=== PATIENT | male | born 1970 | race Caucasian/White ===

== ENCOUNTER 2020-08-02 09:37 | Inpatient (IN) ==
[2020-08-02 11:03] LABS: Basophils # 0.1 K/mcL (0.0-0.2); Basophils % 0.4 %; Eosinophils % 0.2 %; Hemoglobin 15.1 g/dL (12.9-16.9); Immature Granulocytes % 0.5 % (0-4); Lymphocytes # 0.9 K/mcL (0.6-4.6); Lymphocytes % 6.8 %; Mean Corpuscular HGB Conc 32.1 g/dL (31.6-35.5); Mean Corpuscular Hemoglobin 31.6 pg (28.0-33.3); Mean Corpuscular Volume 98.3 fL (83.0-100.0); Mean Platelet Volume 11.9 fL (9.4-12.4); Monocytes # 1.2 K/mcL (0.0-1.3); Monocytes % 8.5 %; Neutrophils # 11.5 K/mcL (1.6-8.9); Platelet Count 165 K/mcL (140-400); Red Blood Count 4.78 M/mcL (4.19-5.50); Red Cell Distribution Width 13.1 % (11.5-14.5); Segmented Neutrophils % 83.6 %; White Blood Count 13.8 K/mcL (4.3-11.1)
[2020-08-02 11:16] LABS: BUN/Creatinine Ratio 14 (6-26); Blood Urea Nitrogen 16 mg/dL (6-20); Calcium 9.6 mg/dL (8.6-10.3); Carbon Dioxide 32 mEq/L (23-29); Chloride 99 mEq/L (98-107); Glucose 111 mg/dL (70-105); Osmolality,Calculated 284 (280-300); Potassium 4.4 mEq/L (3.5-5.1); Sodium 136 mEq/L (136-145); eGFR For African Americans > 60 (> 60); eGFR For Non-African Americans > 60 (> 60)
[2020-08-02] MEDS ORDERED: Piperacillin/Tazobactam 3.375 GM in Water for inj. (sterile) 20 ML IVP ONE (11:52)
[2020-08-02] MEDS ORDERED: *HR* OxyCODONE/APAP 10/325 TABLET PO ONE (12:02)
[2020-08-02] MEDS ORDERED: Dextrose Gel 15 GM/37.5 ML TUBE PO PRN ×2 (13:09)
[2020-08-02] MEDS ORDERED: D5% in Water 1,000 ML IVC PRN (13:09)
[2020-08-02] MEDS ORDERED: MOM Conc 10 ML UD.LIQ PO PRN (13:09)
[2020-08-02] MEDS ORDERED: Naloxone 0.4 MG/ML INJ IVP PRN (13:09)
[2020-08-02] MEDS ORDERED: *HR* Dextrose 50 % in Water (Vial) 50 ML VIAL IVP PRN (13:09)
[2020-08-02] MEDS ORDERED: Mag Hydrox/Al Hydrox/Simeth 30 ML UDC PO PRN (13:09)
[2020-08-02] MEDS ORDERED: Ondansetron 4 MG/2 ML VIAL IVP PRN (13:09)
[2020-08-02] MEDS ORDERED: Vancomycin (wt based) 1,000 MG VIAL IVPB SCH (14:00)
[2020-08-02] MEDS: Insulin LISPRO 300 UNITS/3 ML VIAL SUBQ SCH ×2 (16:33→22:29)
[2020-08-02] MEDS: Piperacillin/Tazobactam 3.375 GM in 0.9 % Sodium Chloride Mini Bag 100 ML IVPB SCH (22:21)
[2020-08-03] MEDS: Vancomycin 2,000 MG/520 ML IV.SOLN IVPB SCH ×2 (01:15→12:36)
[2020-08-03] MEDS: Piperacillin/Tazobactam 3.375 GM in 0.9 % Sodium Chloride Mini Bag 100 ML IVPB SCH ×3 (03:41→19:52)
[2020-08-03 07:00] LABS: Basophils % 0.2 %; Eosinophils # 0.1 K/mcL (0.0-0.6); Eosinophils % 0.4 %; Hematocrit 46.3 % (37.5-50.1); Hemoglobin 15.1 g/dL (12.9-16.9); Immature Granulocytes % 0.5 % (0-4); Lymphocytes # 1.1 K/mcL (0.6-4.6); Lymphocytes % 7.1 %; Mean Corpuscular HGB Conc 32.6 g/dL (31.6-35.5); Mean Corpuscular Hemoglobin 32.1 pg (28.0-33.3); Mean Corpuscular Volume 98.3 fL (83.0-100.0); Mean Platelet Volume 11.9 fL (9.4-12.4); Monocytes # 1.3 K/mcL (0.0-1.3); Monocytes % 8.6 %; Neutrophils # 12.5 K/mcL (1.6-8.9); Platelet Count 153 K/mcL (140-400); Red Blood Count 4.71 M/mcL (4.19-5.50); Red Cell Distribution Width 13.1 % (11.5-14.5); Segmented Neutrophils % 83.2 %
[2020-08-03 07:27] LABS: BUN/Creatinine Ratio 15 (6-26); Blood Urea Nitrogen 19 mg/dL (6-20); Carbon Dioxide 27 mEq/L (23-29); Chloride 98 mEq/L (98-107); Glucose 123 mg/dL (70-105); Magnesium 1.8 mg/dL (1.6-2.6); Osmolality,Calculated 282 (280-300); Sodium 134 mEq/L (136-145); eGFR For African Americans > 60 (> 60); eGFR For Non-African Americans 60 (> 60)
[2020-08-03] MEDS: Insulin LISPRO 300 UNITS/3 ML VIAL SUBQ SCH ×4 (07:37→19:53)
[2020-08-03] MEDS ORDERED: Gadolinium Contrast Agent (WT Based) IV PRN (07:53)
[2020-08-03] MEDS: *HR* Enoxaparin 40 MG/0.4 ML SYRINGE SQ SCH (08:22)
[2020-08-03] MEDS: Acetaminophen 325 MG TABLET PO PRN (08:23)
[2020-08-03] MEDS: 0.9 % Sodium Chloride 1,000 ML IVC SCH ×2 (08:58→17:37)
[2020-08-03 09:15] LABS: C-Reactive Protein 242 mg/L (Less than 10)
[2020-08-04] MEDS: Vancomycin 2,000 MG/520 ML IV.SOLN IVPB SCH ×2 (00:07→14:14)
[2020-08-04 02:57] LABS: Basophils % 0.3 %; Eosinophils # 0.1 K/mcL (0.0-0.6); Eosinophils % 0.5 %; Hematocrit 42.7 % (37.5-50.1); Hemoglobin 13.9 g/dL (12.9-16.9); Immature Granulocytes % 0.5 % (0-4); Lymphocytes # 1.5 K/mcL (0.6-4.6); Lymphocytes % 11.2 %; Mean Corpuscular HGB Conc 32.6 g/dL (31.6-35.5); Mean Corpuscular Hemoglobin 32.6 pg (28.0-33.3); Monocytes # 1.1 K/mcL (0.0-1.3); Monocytes % 8.5 %; Neutrophils # 10.5 K/mcL (1.6-8.9); Platelet Count 121 K/mcL (140-400); Red Blood Count 4.27 M/mcL (4.19-5.50); Red Cell Distribution Width 13.1 % (11.5-14.5); White Blood Count 13.3 K/mcL (4.3-11.1)
[2020-08-04] MEDS: Piperacillin/Tazobactam 3.375 GM in 0.9 % Sodium Chloride Mini Bag 100 ML IVPB SCH ×3 (03:08→20:52)
[2020-08-04] MEDS: 0.9 % Sodium Chloride 1,000 ML IVC SCH (03:08)
[2020-08-04] MEDS: Acetaminophen 325 MG TABLET PO PRN ×2 (03:11→23:26)
[2020-08-04 03:27] LABS: BUN/Creatinine Ratio 15 (6-26); Blood Urea Nitrogen 18 mg/dL (6-20); Calcium 8.4 mg/dL (8.6-10.3); Carbon Dioxide 22 mEq/L (23-29); Chloride 99 mEq/L (98-107); Glucose 111 mg/dL (70-105); Magnesium 1.9 mg/dL (1.6-2.6); Osmolality,Calculated 275 (280-300); Phosphorous 2.8 mg/dL (2.7-4.5); Potassium 4.3 mEq/L (3.5-5.1); Sodium 131 mEq/L (136-145); eGFR For African Americans > 60 (> 60); eGFR For Non-African Americans > 60 (> 60)
[2020-08-04] MEDS: *HR* Enoxaparin 40 MG/0.4 ML SYRINGE SQ SCH (06:02)
[2020-08-04] MEDS: Insulin LISPRO 300 UNITS/3 ML VIAL SUBQ SCH ×4 (07:51→20:47)
[2020-08-04] MEDS ORDERED: Isovue-370 500 ML BOTTLE IVP ONE (14:02)
[2020-08-04] MEDS ORDERED: Ketorolac 15 MG/ML VIAL IVP ONE (16:01)
[2020-08-05] MEDS: 0.9 % Sodium Chloride 1,000 ML IVC SCH ×4 (00:17→17:51)
[2020-08-05] MEDS: Vancomycin 2,000 MG/520 ML IV.SOLN IVPB SCH ×2 (00:18→12:06)
[2020-08-05] MEDS: Piperacillin/Tazobactam 3.375 GM in 0.9 % Sodium Chloride Mini Bag 100 ML IVPB SCH ×3 (04:27→20:28)
[2020-08-05] MEDS: *HR* Enoxaparin 40 MG/0.4 ML SYRINGE SQ SCH (05:57)
[2020-08-05] MEDS: Insulin LISPRO 300 UNITS/3 ML VIAL SUBQ SCH ×4 (07:48→19:18)
[2020-08-05 09:27] LABS: Basophils % 0.3 %; Eosinophils # 0.1 K/mcL (0.0-0.6); Eosinophils % 0.7 %; Hematocrit 40.2 % (37.5-50.1); Hemoglobin 13.1 g/dL (12.9-16.9); Immature Granulocytes % 1.1 % (0-4); Lymphocytes # 1.2 K/mcL (0.6-4.6); Lymphocytes % 11.5 %; Mean Corpuscular HGB Conc 32.6 g/dL (31.6-35.5); Mean Platelet Volume 11.6 fL (9.4-12.4); Monocytes % 9.8 %; Neutrophils # 7.7 K/mcL (1.6-8.9); Platelet Count 162 K/mcL (140-400); Segmented Neutrophils % 76.6 %; White Blood Count 10.1 K/mcL (4.3-11.1)
[2020-08-05 09:49] LABS: BUN/Creatinine Ratio 17 (6-26); Blood Urea Nitrogen 20 mg/dL (6-20); Calcium 8.8 mg/dL (8.6-10.3); Carbon Dioxide 29 mEq/L (23-29); Chloride 101 mEq/L (98-107); Glucose 101 mg/dL (70-105); Osmolality,Calculated 287 (280-300); Potassium 4.2 mEq/L (3.5-5.1); Sodium 137 mEq/L (136-145); eGFR For African Americans > 60 (> 60); eGFR For Non-African Americans > 60 (> 60)
[2020-08-05 11:03] LABS: Estimated Average Glucose 120 mg/dl; Hemoglobin A1C 5.8 %
[2020-08-05] MEDS ORDERED: *HR* Succinylcholine 200 MG/10 ML VIAL IVP ONE (12:38)
[2020-08-05] MEDS ORDERED: Ondansetron 4 MG/2 ML VIAL ONE (12:38)
[2020-08-05] MEDS ORDERED: Lidocaine -MPF 2% 2 ML VIAL ONE (12:38)
[2020-08-05] MEDS ORDERED: Lidocaine HCL 4 ML Topical Solution (Laryng-O-Jet Kit Sterile Pak) TP ONE (12:38)
[2020-08-05] MEDS ORDERED: *HR* FentaNYL (PF) 100 MCG/2 ML VIAL ONE (12:39)
[2020-08-05] MEDS ORDERED: *HR* Midazolam HCl 2 MG/2 ML VIAL ONE (12:39)
[2020-08-05] MEDS ORDERED: Acetaminophen IV 1,000 MG/100 ML BAG IVPB ONE (12:48)
[2020-08-05] MEDS ORDERED: Lidocaine/EPI 1:100k 2% 20 ML VIAL ONE (13:00)
[2020-08-05] MEDS ORDERED: Vancomycin 1,000 MG VIAL ONE (13:00)
[2020-08-05] MEDS ORDERED: Lidocaine/EPI 1:100k 1% 50 ML VIAL ONE (13:00)
[2020-08-05] MEDS ORDERED: *HR* HYDROMORPHONE 2 MG/ML VIAL ONE (14:02)
[2020-08-05] MEDS ORDERED: Gadolinium Contrast Agent (WT Based) IV PRN (16:08)
[2020-08-05] MEDS ORDERED: Mag Hydrox/Al Hydrox/Simeth 30 ML UDC PO PRN (16:08)
[2020-08-05] MEDS ORDERED: *HR* Dextrose 50 % in Water (Vial) 50 ML VIAL IVP PRN (16:08)
[2020-08-05] MEDS ORDERED: Acetaminophen 325 MG TABLET PO PRN (16:08)
[2020-08-05] MEDS ORDERED: Dextrose Gel 15 GM/37.5 ML TUBE PO PRN ×2 (16:08)
[2020-08-05] MEDS ORDERED: MOM Conc 10 ML UD.LIQ PO PRN (16:08)
[2020-08-05] MEDS ORDERED: Naloxone 0.4 MG/ML INJ IVP PRN (16:08)
[2020-08-05] MEDS ORDERED: D5% in Water 1,000 ML IVC PRN (16:08)
[2020-08-05] MEDS ORDERED: Ondansetron 4 MG/2 ML VIAL IVP PRN (16:08)
[2020-08-06] MEDS ORDERED: Vancomycin 2,000 MG/520 ML IV.SOLN IVPB SCH
[2020-08-06] MEDS: 0.9 % Sodium Chloride 1,000 ML IVC SCH ×3 (01:39→20:50)
[2020-08-06] MEDS: Piperacillin/Tazobactam 3.375 GM in 0.9 % Sodium Chloride Mini Bag 100 ML IVPB SCH ×3 (03:45→20:46)
[2020-08-06] MEDS: *HR* Enoxaparin 40 MG/0.4 ML SYRINGE SQ SCH (06:43)
[2020-08-06 07:47] LABS: Basophils % 0.3 %; Hematocrit 37.5 % (37.5-50.1); Hemoglobin 11.6 g/dL (12.9-16.9); Immature Granulocytes % 0.7 % (0-4); Lymphocytes # 1.4 K/mcL (0.6-4.6); Lymphocytes % 11.5 %; Mean Corpuscular HGB Conc 30.9 g/dL (31.6-35.5); Mean Corpuscular Hemoglobin 31.4 pg (28.0-33.3); Mean Corpuscular Volume 101.4 fL (83.0-100.0); Mean Platelet Volume 11.3 fL (9.4-12.4); Monocytes # 1.2 K/mcL (0.0-1.3); Monocytes % 10.1 %; Neutrophils # 9.5 K/mcL (1.6-8.9); Platelet Count 193 K/mcL (140-400); Red Cell Distribution Width 13.1 % (11.5-14.5); Segmented Neutrophils % 77.4 %; White Blood Count 12.3 K/mcL (4.3-11.1)
[2020-08-06 08:06] LABS: Calcium 8.3 mg/dL (8.6-10.3); Magnesium 2.1 mg/dL (1.6-2.6); Potassium 4.6 mEq/L (3.5-5.1)
[2020-08-06] MEDS: Insulin LISPRO 300 UNITS/3 ML VIAL SUBQ SCH ×4 (08:16→20:56)
[2020-08-06] MEDS ORDERED: Morphine Sulfate 2 MG/ML SYRINGE IVP PRN (11:03)
[2020-08-06] MEDS: *HR* OxyCODONE/APAP 10/325 TABLET PO PRN ×3 (14:44→23:02)
[2020-08-06] MEDS: Doxycycline 100 MG in 0.9 % Sodium Chloride Mini Bag 100 ML IVPB SCH (16:59)
[2020-08-07 02:54] LABS: Basophils # 0.1 K/mcL (0.0-0.2); Basophils % 0.5 %; Eosinophils # 0.1 K/mcL (0.0-0.6); Eosinophils % 0.8 %; Hematocrit 37.6 % (37.5-50.1); Hemoglobin 11.9 g/dL (12.9-16.9); Immature Granulocytes % 1.2 % (0-4); Lymphocytes % 20.9 %; Mean Corpuscular HGB Conc 31.6 g/dL (31.6-35.5); Mean Corpuscular Hemoglobin 32.2 pg (28.0-33.3); Mean Corpuscular Volume 101.6 fL (83.0-100.0); Mean Platelet Volume 11.3 fL (9.4-12.4); Monocytes # 1.1 K/mcL (0.0-1.3); Neutrophils # 6.2 K/mcL (1.6-8.9); Platelet Count 207 K/mcL (140-400); Red Cell Distribution Width 13.2 % (11.5-14.5); Segmented Neutrophils % 65.6 %; White Blood Count 9.5 K/mcL (4.3-11.1)
[2020-08-07 03:13] LABS: Calcium 8.3 mg/dL (8.6-10.3); Potassium 4.3 mEq/L (3.5-5.1)
[2020-08-07 03:22] LABS: Platelet Estimate Normal (Normal); Reactive Lymphocytes Present (Not Present)
[2020-08-07] MEDS: *HR* OxyCODONE/APAP 10/325 TABLET PO PRN ×4 (04:05→16:53)
[2020-08-07] MEDS: Piperacillin/Tazobactam 3.375 GM in 0.9 % Sodium Chloride Mini Bag 100 ML IVPB SCH ×2 (04:06→12:11)
[2020-08-07] MEDS: Doxycycline 100 MG in 0.9 % Sodium Chloride Mini Bag 100 ML IVPB SCH (05:51)
[2020-08-07] MEDS: *HR* Enoxaparin 40 MG/0.4 ML SYRINGE SQ SCH (05:52)
[2020-08-07] MEDS: Insulin LISPRO 300 UNITS/3 ML VIAL SUBQ SCH ×4 (09:44→20:40)
[2020-08-07] MEDS: Nicotine 21 MG PATCH.TD24 TD SCH (12:07)
[2020-08-07 12:21] LABS: Hepatitis B Surface Antigen Nonreactive (Nonreactive)
[2020-08-07 12:33] LABS: Bilirubin,Urine Negative (Negative); Blood,Urine Negative (Negative); Clarity,Urine Clear (Clear); Color,Urine Colorless (Yellow); Glucose,Urine (UA) Normal (Normal); Ketones,Urine Negative (Negative); Leukocyte Esterase,Urine Negative (Negative); Nitrite,Urine Negative (Negative); Protein,Urine Negative (Neg-Trace); Urobilinogen,Urine Normal (Normal)
[2020-08-07 12:50] LABS: Hepatitis A Antibody IgM Nonreactive (Nonreactive); Hepatitis B Core IgM Nonreactive (Nonreactive)
[2020-08-07 12:51] LABS: Hepatitis C Virus Antibody Nonreactive (Nonreactive)
[2020-08-07 13:16] LABS: Sodium, Urine 42.8 mEq/L
[2020-08-07] MEDS: 0.9 % Sodium Chloride 1,000 ML IVC SCH ×2 (16:23→16:52)
[2020-08-07] MEDS: Metoprolol XL (24 HR) Succ 50 MG TAB.ER.24H PO SCH (16:54)
[2020-08-07] MEDS: CeFAZolin 2 GM/120 ML BAG IVPB SCH (16:54)
[2020-08-08] MEDS: CeFAZolin 2 GM/120 ML BAG IVPB SCH ×4 (00:47→23:50)
[2020-08-08] MEDS: 0.9 % Sodium Chloride 1,000 ML IVC SCH ×3 (00:55→16:12)
[2020-08-08] MEDS: *HR* Enoxaparin 40 MG/0.4 ML SYRINGE SQ SCH (04:51)
[2020-08-08 06:43] LABS: Basophils # 0.1 K/mcL (0.0-0.2); Basophils % 0.7 %; Eosinophils # 0.1 K/mcL (0.0-0.6); Eosinophils % 0.6 %; Hematocrit 37.4 % (37.5-50.1); Hemoglobin 11.6 g/dL (12.9-16.9); Immature Granulocytes % 0.8 % (0-4); Lymphocytes # 1.5 K/mcL (0.6-4.6); Lymphocytes % 17.9 %; Mean Corpuscular Hemoglobin 31.4 pg (28.0-33.3); Mean Corpuscular Volume 101.1 fL (83.0-100.0); Mean Platelet Volume 10.9 fL (9.4-12.4); Monocytes # 0.9 K/mcL (0.0-1.3); Monocytes % 10.2 %; Neutrophils # 5.8 K/mcL (1.6-8.9); Platelet Count 223 K/mcL (140-400); Red Cell Distribution Width 13.1 % (11.5-14.5); Segmented Neutrophils % 69.8 %; White Blood Count 8.3 K/mcL (4.3-11.1)
[2020-08-08 07:02] LABS: Albumin 3.3 g/dL (3.5-5.7); Bilirubin,Indirect 0.3 mg/dL (0.0-1.0); Bilirubin,Total 0.3 mg/dL (0.3-1.0); Calcium 8.5 mg/dL (8.6-10.3); Globulin 3.3 g/dL (2.4-3.5); Magnesium 2.1 mg/dL (1.6-2.6); Potassium 4.5 mEq/L (3.5-5.1); Total Protein 6.6 g/dL (6.4-8.9)
[2020-08-08] MEDS: Insulin LISPRO 300 UNITS/3 ML VIAL SUBQ SCH ×4 (08:23→19:28)
[2020-08-08] MEDS: Nicotine 21 MG PATCH.TD24 TD SCH (10:35)
[2020-08-08] MEDS: amLODIPine 5 MG TABLET PO SCH (10:37)
[2020-08-08] MEDS: Metoprolol XL (24 HR) Succ 50 MG TAB.ER.24H PO SCH (10:38)
[2020-08-08] MEDS ORDERED: Ipratropium/Albuterol Neb 3 ML IH PRN (11:31)
[2020-08-08] MEDS: *HR* OxyCODONE/APAP 10/325 TABLET PO PRN (15:51)
[2020-08-09] MEDS: *HR* Enoxaparin 40 MG/0.4 ML SYRINGE SQ SCH (02:59)
[2020-08-09 06:03] LABS: Basophils # 0.1 K/mcL (0.0-0.2); Basophils % 0.6 %; Eosinophils # 0.1 K/mcL (0.0-0.6); Eosinophils % 1.1 %; Hematocrit 38.1 % (37.5-50.1); Hemoglobin 12.2 g/dL (12.9-16.9); Immature Granulocytes % 1.9 % (0-4); Lymphocytes # 1.9 K/mcL (0.6-4.6); Lymphocytes % 18.4 %; Mean Corpuscular Hemoglobin 31.4 pg (28.0-33.3); Mean Corpuscular Volume 98.2 fL (83.0-100.0); Monocytes # 1.1 K/mcL (0.0-1.3); Monocytes % 10.9 %; Neutrophils # 6.8 K/mcL (1.6-8.9); Platelet Count 250 K/mcL (140-400); Red Blood Count 3.88 M/mcL (4.19-5.50); Red Cell Distribution Width 13.2 % (11.5-14.5); Segmented Neutrophils % 67.1 %; White Blood Count 10.2 K/mcL (4.3-11.1)
[2020-08-09] MEDS: Insulin LISPRO 300 UNITS/3 ML VIAL SUBQ SCH ×4 (07:04→19:32)
[2020-08-09] MEDS: CeFAZolin 2 GM/120 ML BAG IVPB SCH ×3 (07:33→23:38)
[2020-08-09] MEDS: Metoprolol XL (24 HR) Succ 50 MG TAB.ER.24H PO SCH (07:34)
[2020-08-09] MEDS: Nicotine 21 MG PATCH.TD24 TD SCH ×2 (07:34→07:38)
[2020-08-09] MEDS: amLODIPine 5 MG TABLET PO SCH (07:34)
[2020-08-09 09:16] LABS: Calcium 8.7 mg/dL (8.6-10.3); Magnesium 2.1 mg/dL (1.6-2.6); Potassium 4.3 mEq/L (3.5-5.1)
[2020-08-09] MEDS: Sodium Bicarbonate 150 MEQ in Water for inj. (sterile) 1,000 ML IVC SCH (12:30)
[2020-08-09] MEDS: *HR* OxyCODONE/APAP 10/325 TABLET PO PRN ×2 (16:45→23:46)
[2020-08-09] MEDS: polyethylene glycoL 3350 17 GM POWD.PACK PO SCH (16:51)
[2020-08-09] MEDS: Sennosides/Docusate Sodium TABLET PO SCH (19:32)
[2020-08-10] MEDS: Sodium Bicarbonate 150 MEQ in Water for inj. (sterile) 1,000 ML IVC SCH ×2 (01:38→10:13)
[2020-08-10 04:44] LABS: Basophils % 0.5 %; Eosinophils # 0.1 K/mcL (0.0-0.6); Eosinophils % 1.7 %; Hematocrit 34.2 % (37.5-50.1); Hemoglobin 10.8 g/dL (12.9-16.9); Immature Granulocytes % 1.1 % (0-4); Lymphocytes # 1.4 K/mcL (0.6-4.6); Lymphocytes % 21.6 %; Mean Corpuscular HGB Conc 31.6 g/dL (31.6-35.5); Mean Corpuscular Hemoglobin 31.8 pg (28.0-33.3); Mean Corpuscular Volume 100.6 fL (83.0-100.0); Mean Platelet Volume 10.3 fL (9.4-12.4); Monocytes # 0.6 K/mcL (0.0-1.3); Monocytes % 9.4 %; Neutrophils # 4.2 K/mcL (1.6-8.9); Platelet Count 212 K/mcL (140-400); Segmented Neutrophils % 65.7 %; White Blood Count 6.4 K/mcL (4.3-11.1)
[2020-08-10 05:05] LABS: Calcium 8.5 mg/dL (8.6-10.3); Magnesium 2.1 mg/dL (1.6-2.6); Potassium 4.3 mEq/L (3.5-5.1)
[2020-08-10] MEDS: Nicotine 21 MG PATCH.TD24 TD SCH (07:14)
[2020-08-10] MEDS: amLODIPine 5 MG TABLET PO SCH (07:40)
[2020-08-10] MEDS: CeFAZolin 2 GM/120 ML BAG IVPB SCH ×3 (07:40→23:12)
[2020-08-10] MEDS: *HR* Enoxaparin 40 MG/0.4 ML SYRINGE SQ SCH (07:40)
[2020-08-10] MEDS: polyethylene glycoL 3350 17 GM POWD.PACK PO SCH (07:40)
[2020-08-10] MEDS: Sennosides/Docusate Sodium TABLET PO SCH ×2 (07:40→20:22)
[2020-08-10] MEDS: Metoprolol XL (24 HR) Succ 50 MG TAB.ER.24H PO SCH (07:40)
[2020-08-10] MEDS: Insulin LISPRO 300 UNITS/3 ML VIAL SUBQ SCH ×4 (07:52→20:08)
[2020-08-10] MEDS: *HR* OxyCODONE/APAP 10/325 TABLET PO PRN ×3 (07:53→20:22)
[2020-08-11 03:58] LABS: Basophils # 0.1 K/mcL (0.0-0.2); Basophils % 0.9 %; Eosinophils # 0.1 K/mcL (0.0-0.6); Eosinophils % 1.7 %; Hematocrit 35.5 % (37.5-50.1); Hemoglobin 10.8 g/dL (12.9-16.9); Immature Granulocytes % 0.8 % (0-4); Lymphocytes # 1.6 K/mcL (0.6-4.6); Lymphocytes % 21.3 %; Mean Corpuscular HGB Conc 30.4 g/dL (31.6-35.5); Mean Platelet Volume 10.8 fL (9.4-12.4); Monocytes # 0.7 K/mcL (0.0-1.3); Monocytes % 8.9 %; Platelet Count 231 K/mcL (140-400); Red Blood Count 3.48 M/mcL (4.19-5.50); Red Cell Distribution Width 12.9 % (11.5-14.5); Segmented Neutrophils % 66.4 %; White Blood Count 7.6 K/mcL (4.3-11.1)
[2020-08-11 04:05] LABS: Calcium 8.9 mg/dL (8.6-10.3); Potassium 4.5 mEq/L (3.5-5.1)
[2020-08-11] MEDS: *HR* Enoxaparin 40 MG/0.4 ML SYRINGE SQ SCH (05:37)
[2020-08-11] MEDS: Metoprolol XL (24 HR) Succ 50 MG TAB.ER.24H PO SCH (08:46)
[2020-08-11] MEDS: *HR* OxyCODONE/APAP 10/325 TABLET PO PRN ×2 (08:46→17:25)
[2020-08-11] MEDS: amLODIPine 5 MG TABLET PO SCH (08:46)
[2020-08-11] MEDS: polyethylene glycoL 3350 17 GM POWD.PACK PO SCH (08:46)
[2020-08-11] MEDS: Insulin LISPRO 300 UNITS/3 ML VIAL SUBQ SCH ×4 (08:46→19:06)
[2020-08-11] MEDS: Sennosides/Docusate Sodium TABLET PO SCH (08:46)
[2020-08-11] MEDS: Nicotine 21 MG PATCH.TD24 TD SCH (08:47)
[2020-08-11] MEDS: CeFAZolin 2 GM/120 ML BAG IVPB SCH (08:47)
[2020-08-11] MEDS: ceFAZolin 2,000 MG in 0.9 % Sodium Chloride 100 ML IVPB SCH (17:22)
[2020-08-11] MEDS ORDERED: *HR* LORazepam 2 MG/ML VIAL IVP ONE (20:31)
[2020-08-11 21:18] LABS: VBG HCO3 33 mEq/L (21-27); VBG PCO2 63 mmHg (41-51); VBG PH 7.33 pH Units (7.32-7.42); VBG PO2 67 mmHg (25-50)
[2020-08-12] MEDS ORDERED: *HR* Labetalol 20 MG/4 ML SYRINGE IVP ONE ×2 (03:38→23:50)
[2020-08-12] MEDS: *HR* OxyCODONE/APAP 10/325 TABLET PO PRN ×2 (03:38→14:40)
[2020-08-12 04:04] LABS: Basophils # 0.1 K/mcL (0.0-0.2); Basophils % 0.8 %; Eosinophils # 0.1 K/mcL (0.0-0.6); Eosinophils % 1.4 %; Hematocrit 36.4 % (37.5-50.1); Hemoglobin 11.1 g/dL (12.9-16.9); Lymphocytes # 1.4 K/mcL (0.6-4.6); Lymphocytes % 18.4 %; Mean Corpuscular HGB Conc 30.5 g/dL (31.6-35.5); Mean Corpuscular Hemoglobin 30.9 pg (28.0-33.3); Mean Corpuscular Volume 101.4 fL (83.0-100.0); Mean Platelet Volume 10.7 fL (9.4-12.4); Monocytes # 0.7 K/mcL (0.0-1.3); Monocytes % 8.7 %; Neutrophils # 5.5 K/mcL (1.6-8.9); Platelet Count 242 K/mcL (140-400); Red Blood Count 3.59 M/mcL (4.19-5.50); Red Cell Distribution Width 12.8 % (11.5-14.5); Segmented Neutrophils % 69.7 %; White Blood Count 7.8 K/mcL (4.3-11.1)
[2020-08-12 04:15] LABS: Calcium 9.1 mg/dL (8.6-10.3)
[2020-08-12] MEDS: ceFAZolin 2,000 MG in 0.9 % Sodium Chloride 100 ML IVPB SCH ×2 (05:28→18:53)
[2020-08-12] MEDS: *HR* Enoxaparin 40 MG/0.4 ML SYRINGE SQ SCH (05:28)
[2020-08-12] MEDS: Insulin LISPRO 300 UNITS/3 ML VIAL SUBQ SCH ×4 (10:11→20:59)
[2020-08-12] MEDS: Nicotine 21 MG PATCH.TD24 TD SCH (10:25)
[2020-08-12] MEDS: Metoprolol XL (24 HR) Succ 50 MG TAB.ER.24H PO SCH (10:41)
[2020-08-12] MEDS: polyethylene glycoL 3350 17 GM POWD.PACK PO SCH (10:41)
[2020-08-12] MEDS: amLODIPine 5 MG TABLET PO SCH (10:41)
[2020-08-12] MEDS ORDERED: Furosemide 40 MG/4 ML VIAL IVP ONE (13:38)
[2020-08-13] MEDS: *HR* OxyCODONE/APAP 10/325 TABLET PO PRN ×2 (03:16→16:50)
[2020-08-13 03:26] LABS: Basophils # 0.1 K/mcL (0.0-0.2); Eosinophils # 0.2 K/mcL (0.0-0.6); Eosinophils % 2.4 %; Hematocrit 35.9 % (37.5-50.1); Hemoglobin 11.2 g/dL (12.9-16.9); Immature Granulocytes % 0.8 % (0-4); Lymphocytes # 1.5 K/mcL (0.6-4.6); Lymphocytes % 21.1 %; Mean Corpuscular HGB Conc 31.2 g/dL (31.6-35.5); Mean Corpuscular Hemoglobin 31.4 pg (28.0-33.3); Mean Corpuscular Volume 100.6 fL (83.0-100.0); Mean Platelet Volume 10.5 fL (9.4-12.4); Monocytes # 0.7 K/mcL (0.0-1.3); Monocytes % 9.1 %; Neutrophils # 4.7 K/mcL (1.6-8.9); Platelet Count 237 K/mcL (140-400); Red Blood Count 3.57 M/mcL (4.19-5.50); Red Cell Distribution Width 12.5 % (11.5-14.5); Segmented Neutrophils % 65.6 %; White Blood Count 7.2 K/mcL (4.3-11.1)
[2020-08-13 03:48] LABS: Calcium 9.1 mg/dL (8.6-10.3); Potassium 4.8 mEq/L (3.5-5.1)
[2020-08-13] MEDS: ceFAZolin 2,000 MG in 0.9 % Sodium Chloride 100 ML IVPB SCH ×2 (05:34→16:51)
[2020-08-13] MEDS: *HR* Enoxaparin 40 MG/0.4 ML SYRINGE SQ SCH (05:35)
[2020-08-13] MEDS: Insulin LISPRO 300 UNITS/3 ML VIAL SUBQ SCH ×4 (08:41→23:13)
[2020-08-13] MEDS: polyethylene glycoL 3350 17 GM POWD.PACK PO SCH (08:50)
[2020-08-13] MEDS: Metoprolol XL (24 HR) Succ 50 MG TAB.ER.24H PO SCH (08:51)
[2020-08-13] MEDS: amLODIPine 5 MG TABLET PO SCH (08:51)
[2020-08-13] MEDS: Nicotine 21 MG PATCH.TD24 TD SCH (08:52)
[2020-08-14] MEDS: *HR* OxyCODONE/APAP 10/325 TABLET PO PRN ×2 (02:06→14:27)
[2020-08-14 02:34] LABS: Calcium 9.1 mg/dL (8.6-10.3)
[2020-08-14 02:59] LABS: Folate 7.9 ng/mL (3.0-16.0)
[2020-08-14] MEDS: *HR* Enoxaparin 40 MG/0.4 ML SYRINGE SQ SCH (05:36)
[2020-08-14] MEDS: ceFAZolin 2,000 MG in 0.9 % Sodium Chloride 100 ML IVPB SCH ×2 (05:36→17:36)
[2020-08-14] MEDS: Insulin LISPRO 300 UNITS/3 ML VIAL SUBQ SCH ×4 (07:10→19:30)
[2020-08-14] MEDS: amLODIPine 5 MG TABLET PO SCH (08:57)
[2020-08-14] MEDS: Metoprolol XL (24 HR) Succ 50 MG TAB.ER.24H PO SCH (08:58)
[2020-08-14] MEDS: Nicotine 21 MG PATCH.TD24 TD SCH (08:59)
[2020-08-14] MEDS: polyethylene glycoL 3350 17 GM POWD.PACK PO SCH (08:59)
[2020-08-14] MEDS: metroNIDAZOLE 500 MG TABLET PO SCH ×2 (14:24→19:30)
[2020-08-14] MEDS ORDERED: Metoprolol XL (24 HR) Succ 50 MG TAB.ER.24H PO ONE (15:00)
[2020-08-14] MEDS: hydrALAZINE 25 MG TABLET PO SCH (19:30)
[2020-08-15 04:54] LABS: Calcium 9.2 mg/dL (8.6-10.3); Potassium 5.3 mEq/L (3.5-5.1)
[2020-08-15] MEDS: ceFAZolin 2,000 MG in 0.9 % Sodium Chloride 100 ML IVPB SCH ×3 (05:07→19:58)
[2020-08-15] MEDS: *HR* Enoxaparin 40 MG/0.4 ML SYRINGE SQ SCH (05:07)
[2020-08-15] MEDS: Insulin LISPRO 300 UNITS/3 ML VIAL SUBQ SCH ×4 (07:11→19:59)
[2020-08-15] MEDS: hydrALAZINE 25 MG TABLET PO SCH ×3 (09:15→19:24)
[2020-08-15] MEDS: metroNIDAZOLE 500 MG TABLET PO SCH ×3 (09:16→19:24)
[2020-08-15] MEDS: *HR* OxyCODONE/APAP 10/325 TABLET PO PRN ×2 (09:17→19:24)
[2020-08-15] MEDS: Metoprolol XL (24 HR) Succ 50 MG TAB.ER.24H PO SCH (09:17)
[2020-08-15] MEDS ORDERED: Calcium Gluconate 1gm/50mL 1 GM/50 ML BAG IVPB ONE (10:49)
[2020-08-15] MEDS: polyethylene glycoL 3350 17 GM POWD.PACK PO SCH (11:00)
[2020-08-15] MEDS: Nicotine 21 MG PATCH.TD24 TD SCH (11:00)
[2020-08-15] MEDS ORDERED: Ipratropium/Albuterol Neb 3 ML IH ONE (18:29)
[2020-08-16] MEDS: *HR* Enoxaparin 40 MG/0.4 ML SYRINGE SQ SCH (05:11)
[2020-08-16] MEDS: *HR* OxyCODONE/APAP 10/325 TABLET PO PRN ×3 (05:11→20:24)
[2020-08-16] MEDS: ceFAZolin 2,000 MG in 0.9 % Sodium Chloride 100 ML IVPB SCH ×3 (05:12→20:25)
[2020-08-16 06:09] LABS: Basophils # 0.1 K/mcL (0.0-0.2); Eosinophils # 0.2 K/mcL (0.0-0.6); Eosinophils % 3.2 %; Hematocrit 35.4 % (37.5-50.1); Hemoglobin 11.1 g/dL (12.9-16.9); Immature Granulocytes % 0.4 % (0-4); Lymphocytes # 1.4 K/mcL (0.6-4.6); Lymphocytes % 20.2 %; Mean Corpuscular HGB Conc 31.4 g/dL (31.6-35.5); Mean Corpuscular Hemoglobin 30.9 pg (28.0-33.3); Mean Corpuscular Volume 98.6 fL (83.0-100.0); Mean Platelet Volume 10.8 fL (9.4-12.4); Monocytes # 0.7 K/mcL (0.0-1.3); Monocytes % 10.5 %; Neutrophils # 4.4 K/mcL (1.6-8.9); Platelet Count 235 K/mcL (140-400); Red Blood Count 3.59 M/mcL (4.19-5.50); Red Cell Distribution Width 12.6 % (11.5-14.5); Segmented Neutrophils % 64.7 %; White Blood Count 6.8 K/mcL (4.3-11.1)
[2020-08-16 06:42] LABS: Calcium 9.1 mg/dL (8.6-10.3); Potassium 4.9 mEq/L (3.5-5.1)
[2020-08-16] MEDS: Insulin LISPRO 300 UNITS/3 ML VIAL SUBQ SCH ×4 (07:41→20:29)
[2020-08-16] MEDS: hydrALAZINE 25 MG TABLET PO SCH ×3 (07:47→20:24)
[2020-08-16] MEDS: polyethylene glycoL 3350 17 GM POWD.PACK PO SCH (07:47)
[2020-08-16] MEDS: Metoprolol XL (24 HR) Succ 50 MG TAB.ER.24H PO SCH (07:47)
[2020-08-16] MEDS: Nicotine 21 MG PATCH.TD24 TD SCH (07:47)
[2020-08-16] MEDS: metroNIDAZOLE 500 MG TABLET PO SCH (07:48)
[2020-08-17] MEDS: *HR* OxyCODONE/APAP 10/325 TABLET PO PRN ×2 (03:30→14:18)
[2020-08-17] MEDS: ceFAZolin 2,000 MG in 0.9 % Sodium Chloride 100 ML IVPB SCH ×2 (05:27→13:54)
[2020-08-17] MEDS: *HR* Enoxaparin 40 MG/0.4 ML SYRINGE SQ SCH (05:27)
[2020-08-17 07:36] LABS: Calcium 9.2 mg/dL (8.6-10.3); Magnesium 1.8 mg/dL (1.6-2.6); Phosphorous 4.8 mg/dL (2.7-4.5)
[2020-08-17] MEDS: Insulin LISPRO 300 UNITS/3 ML VIAL SUBQ SCH ×2 (08:13→13:54)
[2020-08-17] MEDS ORDERED: hydrALAZINE 25 MG TABLET PO SCH (09:00)
[2020-08-17] MEDS: Nicotine 21 MG PATCH.TD24 TD SCH (09:17)
[2020-08-17] MEDS: polyethylene glycoL 3350 17 GM POWD.PACK PO SCH (09:17)
[2020-08-17] MEDS: Metoprolol XL (24 HR) Succ 50 MG TAB.ER.24H PO SCH (09:20)
[2020-08-17 11:26] VITALS: BP 146/81
[2020-08-17] MEDS ORDERED: metroNIDAZOLE 500 MG TABLET PO SCH (15:00)
== END 2020-08-17 14:56 | disposition home health service (06) | DRG 477 ==
LOC: 3BNU 09:37 → EMEROOARM 09:37 → SUATTDRO 12:57 → 3BNU 13:15 → SUATTDRO 08-03 10:07 → 3BNU 08-07 21:11
PROVIDERS: ADMIT Internal Medicine; ATTEND Internal Medicine